=== PATIENT | male | born 1965 | race Two or more races ===

== ENCOUNTER 2024-03-23 14:11 | Emergency (ER) | payer MEDICAID, SELFPAY ==
[2024-03-23 14:14] VITALS: BP 161/97; PULSE 104; RESP 18; TEMP 37.3; O2SAT 97
--- NOTE | 2024-03-23 14:36 | PD.EDMEDCL ---
ED Medical Clearance RME/HPI General Chief complaint: Medical Clearance Stated complaint: SKILLED NURSING CHECK Time Seen by Provider: 03/23/24 14:17 Arrival date/time: 03/23/24 14:11 RME / MARCIN RME / HPI Narrative: DR. GRIFFITHS MAIN ED EVALUATION: 59 year old male with past medical history significant for schizophrenia and bipolar disorder presents to the Emergency Department brought in by police as a medical clearance for elevated blood pressure. Patient is asymptomatic. Related Information Home Medications ?Medication ?Instructions ?Recorded ?Confirmed Unobtainable 02/17/19 02/17/19 Allergies Allergy/AdvReac Type Severity Reaction Status Date / Time haloperidol AdvReac Severe Swelling Verified 02/17/19 11:35 Review of Systems Review of Systems Systems Reviewed: All systems reviewed, normal except as documented Narrative Review of Systems: GEN: No fever, no chills, no weight loss EYES: No discharge, no visual changes, no pain HEENT: No ear pain, no congestion, no sore throat PULM: No shortness of breath, no cough, no congestion CV: No chest pain, no dyspnea on exertion, no palpitations GI: No nausea, no vomiting, no diarrhea, no pain, no constipation : No frequency, no urgency and no dysuria MUSC/SKEL: No joint pain, no back pain SKIN: No rash PSYCH: No hallucinations, no depression HEME/LYMPH: No easy bleeding or bruising tendencies NEURO: No weakness, no headache Past Medical History Past Medical History PSYCHO/SOCIAL: Positive Schizophrenia, Bipolar Disorder and Behavior Problems Social History SMOKING STATUS: Never smoker SUBSTANCE USE: methamphetamine and other (benzos) ALCOHOL: Never ED Exam Narrative Physical exam: GENERAL APPEARANCE: alert and oriented x 4, well-developed, well-nourished, no acute distress VITALS: All vitals were reviewed and the pulse ox is 97% on room air, which is normal according to my interpretation. HEENT: Normocephalic, atraumatic; pupils equal, round, reactive to light; EOMI; mucous membranes pink, moist; oropharynx clear NECK: Supple LUNGS: CTABL; no wheezes, no rales, no rhonchi HEART: Regular rate, regular rhythm; normal S1, S2; no murmurs ABDOMEN: non distended; normal BS; soft, no tenderness, no guarding, no rebound; no masses, no organomegaly, no hernia BACK: no CVA tenderness EXTREMITIES: atraumatic; no edema NEUROLOGIC: awake; alert and oriented x4; cranial nerves II-XII grossly intact; no focal sensory or motor deficits PSYCHIATRIC: appropriate mood and affect SKIN: warm, dry, normal color; no rashes Course Quality Measures none Vital Signs Vital signs: Vital Signs Temperature 99.2 F 03/23/24 14:14 Pulse Rate 104 H 03/23/24 14:14 Respiratory Rate 18 03/23/24 14:14 Blood Pressure 161/97 H 03/23/24 14:14 Pulse Oximetry (%) 97 03/23/24 14:14 Oxygen Delivery Method Room Air 03/23/24 14:14 Medical Clearance MDM Narrative MDM Narrative:: ISarita, am scribing for and in the presence of Dr. Griffiths. Patient data External records reviewed:: [facility] previous records (Reviewed last ED visit dated 11/07/23, discharged with the following: Suicidal ideation) Clinical information provided by:: patient and law enforcement Social determinants that could affect healthcare access:: substance use (methamphetamine and benzos) Patient has the following chronic illnesses:: schizophrenia and bipolar disorder How is presenting disease/condition affected by chronic disease/condition?: uneffected by Evaluation data The following diagnostics were reviewed and interpreted by me:: other (specify) (none) Lab and/or radiology exams considered but not ordered:: none Interpretation Summary: n/a Medications / Prescriptions Medications or Prescriptions considered but not ordered:: none Medication administrations:: none Consultations Consultation(s) initiated? (list below): No Diagnosis Medical Clearance Differential Diagnosis: other (medical clearance, hypertension emergency, hypertension urgency, anxiety) Most likely diagnosis given after review of the tests above:: Elevated blood pressure reading Admission Indicated Admission indicated?: not indicated Admission Request Was there a request for admission?: No Disposition Plan Disposition Plan: Discharge Discharge Attestation Discharge Attestation: The patient and all family members were given an opportunity to ask questions and understood the discharge instructions. Discharge instructions specifically effects, indications for sooner follow up or return to the emergency department, and the expected course of current diagnosis. Patient condition: Stable Discharge Plan Plan Patient Disposition: [facility]/Court/Law Disposition Comment: Okay to book Prescriptions/Referrals Prescriptions/Med Rec: No Action Unobtainable Referrals: No Primary/Family,Physician [Primary Care Provider] - In 1 week Problem List Clinical Impression: Elevated blood pressure reading, Medical clearance for incarceration Patient/Caregiver Discharge Instructions Print Language: Algerian
[2024-03-23 14:44] VITALS: BMI 31.2
== END 2024-03-23 15:15 ==
PROVIDERS: Emergency Provider Emergency Medicine
DX: Z02.89 Encounter for other administrative examinations (principal); R03.0 Elevated blood-pressure reading, without diagnosis of hypertension
CPT/HCPCS: 99281

== ENCOUNTER 2024-03-23 15:43 | Emergency (ER) | payer MEDICAID, SELFPAY ==
[2024-03-23 15:57] VITALS: BP 172/112; PULSE 114; RESP 20; TEMP 37.7; O2SAT 97
--- NOTE | 2024-03-23 16:06 | PD.EDMEDCL ---
ED Medical Clearance RME/HPI General Stated complaint: MEDICAL CLEARANCE Time Seen by Provider: 03/23/24 16:03 Arrival date/time: 03/23/24 15:43 RME / HPI RME / HPI Narrative: DR. TORRES MAIN ED EVALUATION: 59 year old male with past medical history significant for schizophrenia and bipolar disorder presents to the Emergency Department brought in by police as a medical clearance for elevated blood pressure again. Patient was just seen for elevated blood pressure about 2 hours ago and discharged after his blood pressure was normal here and sent back to residential; however, at residential they re-took it and it was elevated again. Patient is otherwise asymptomatic. Related Information Home Medications ?Medication ?Instructions ?Recorded ?Confirmed Unobtainable 02/17/19 02/17/19 Allergies Allergy/AdvReac Type Severity Reaction Status Date / Time haloperidol AdvReac Severe Swelling Verified 02/17/19 11:35 Review of Systems Review of Systems Systems Reviewed: All systems reviewed, normal except as documented Narrative Review of Systems: GEN: No fever, no chills, no weight loss EYES: No discharge, no visual changes, no pain HEENT: No ear pain, no congestion, no sore throat PULM: No shortness of breath, no cough, no congestion CV: No chest pain, no dyspnea on exertion, no palpitations GI: No nausea, no vomiting, no diarrhea, no pain, no constipation : No frequency, no urgency and no dysuria MUSC/SKEL: No joint pain, no back pain SKIN: No rash PSYCH: No hallucinations, no depression HEME/LYMPH: No easy bleeding or bruising tendencies NEURO: No weakness, no headache Past Medical History Past Medical History PSYCHO/SOCIAL: Positive Schizophrenia, Bipolar Disorder and Behavior Problems Social History SMOKING STATUS: Never smoker SUBSTANCE USE: methamphetamine and other (benzos) ALCOHOL: Never ED Exam Narrative Physical exam: GENERAL APPEARANCE: alert and oriented x 4, well-developed, well-nourished, no acute distress VITALS: All vitals were reviewed and the pulse ox is 97% on room air, which is normal according to my interpretation. HEENT: Normocephalic, atraumatic; pupils equal, round, reactive to light; EOMI; mucous membranes pink, moist; oropharynx clear NECK: Supple LUNGS: CTABL; no wheezes, no rales, no rhonchi HEART: Regular rate, regular rhythm; normal S1, S2; no murmurs ABDOMEN: non distended; normal BS; soft, no tenderness, no guarding, no rebound; no masses, no organomegaly, no hernia BACK: no CVA tenderness EXTREMITIES: atraumatic; no edema NEUROLOGIC: awake; alert and oriented x4; cranial nerves II-XII grossly intact; no focal sensory or motor deficits PSYCHIATRIC: appropriate mood and affect SKIN: warm, dry, normal color; no rashes Course Quality Measures none Orders Category Date Time Status LORazepam [Ativan] Med 03/23/24 16:06 Discontinued 2 mg PO X1 ONE cloNIDine HCL [Catapres] Med 03/23/24 16:06 Discontinued 0.2 mg PO X1 ONE Reevaluation(s) Reevaluation #1: I ordered ativan and clonidine P.O. and when he got up the nurse found these medications hidden under him, he is not taking the medications and refusing. Time: 17:50 Vital Signs Vital signs: Vital Signs Temperature 99.9 F 03/23/24 15:57 Pulse Rate 114 H 03/23/24 15:57 Respiratory Rate 20 03/23/24 15:57 Blood Pressure 172/112 H 03/23/24 15:57 Pulse Oximetry (%) 97 03/23/24 15:57 Oxygen Delivery Method Room Air 03/23/24 15:57 Medical Clearance MDM Narrative MDM Narrative:: Sarita Lyle am scribing for and in the presence of Dr. Torres. Patient data External records reviewed:: [facility] previous records (Reviewed last ED visit dated from today 03/23/24, discharged with the following: Elevated blood pressure reading) Clinical information provided by:: patient and law enforcement Social determinants that could affect healthcare access:: substance use (methamphetamine and benzos) Patient has the following chronic illnesses:: schizophrenia and bipolar disorder How is presenting disease/condition affected by chronic disease/condition?: uneffected by Evaluation data The following diagnostics were reviewed and interpreted by me:: other (specify) (none) Lab and/or radiology exams considered but not ordered:: none Interpretation Summary: n/a Medications / Prescriptions Medications or Prescriptions considered but not ordered:: none Medication administrations:: Medication Administration History Discontinued Medications Clonidine (Clonidine Hcl 0.1 Mg Tablet) 0.2 mg PO X1 ONE Stop: 03/23/24 16:07 Last Admin: 03/23/24 16:35 Dose: 0.2 mg Documented By: TAMIKA Lorazepam (Lorazepam 0.5 Mg Tablet) 2 mg PO X1 ONE Stop: 03/23/24 16:07 Last Admin: 03/23/24 16:35 Dose: 2 mg Documented By: TAMIKA see above Consultations Consultation(s) initiated? (list below): No Diagnosis Medical Clearance Differential Diagnosis: other (medical clearance, hypertension emergency, hypertension urgency, anxiety) Most likely diagnosis given after review of the tests above:: Elevated blood pressure reading Admission Indicated Admission indicated?: not indicated Admission Request Was there a request for admission?: No Disposition Plan Disposition Plan: Discharge Discharge Attestation Discharge Attestation: The patient and all family members were given an opportunity to ask questions and understood the discharge instructions. Discharge instructions specifically effects, indications for sooner follow up or return to the emergency department, and the expected course of current diagnosis. Patient condition: Stable Discharge Plan Plan Patient Disposition: HOME (Self Care) Prescriptions/Referrals Prescriptions/Med Rec: No Action Unobtainable Referrals: No Primary/Family,Physician [Primary Care Provider] - In 1 week Problem List Clinical Impression: Elevated blood pressure reading Patient/Caregiver Discharge Instructions Education Materials: ED Hypertension, To Be Confirmed Print Language: Lao Stand Alone Forms: Vidhi Award Info., Patient Portal Info Letter
[2024-03-23 16:35] VITALS: BP 172/112; PULSE 114
[2024-03-23] MEDS: LORazepam 0.5 MG TABLET 2 MG PO (16:35)
[2024-03-23] MEDS: cloNIDine HCL 0.1 MG TABLET 0.2 MG PO (16:35)
[2024-03-23 17:23] VITALS: BP 172/126
[2024-03-23 17:50] VITALS: BP 164/92
[2024-03-23 18:15] VITALS: BP 137/86; PULSE 97; RESP 18; TEMP 36.6; O2SAT 96
== END 2024-03-23 18:46 | disposition home or self-care (01) ==
PROVIDERS: Emergency Provider Emergency Medicine
DX: Z02.89 Encounter for other administrative examinations (principal); F20.9 Schizophrenia, unspecified; F31.9 Bipolar disorder, unspecified; R03.0 Elevated blood-pressure reading, without diagnosis of hypertension
CPT/HCPCS: 99282; A9270

== ENCOUNTER 2024-03-23 20:28 | Emergency (ER) | payer MEDICAID, SELFPAY ==
[2024-03-23 20:31] VITALS: BP 197/113; PULSE 148; RESP 20; TEMP 36.9; O2SAT 99; BMI 30.9
--- NOTE | 2024-03-23 21:26 | EDNOTE_ITS ---
ED Psych RME/HPI General Chief Complaint: Psychiatric Symptoms Stated Complaint: SKILLED NURSING CHECK Time Seen by Provider: 03/23/24 20:30 Source: patient and police Arrival date/time: 03/23/24 20:28 59-year-old male is brought into the emergency department by report of the police officers for medical clearance for incarceration. Patient was found at the nearby [employer] shop arguing and attempting to fight employees from the shop. Patient has a history of hypertension, schizophrenia mental health disorder. Upon arrival patient is screaming incoherent gestures, belligerent. Patient is aggressive and was tased 4 times by officers, because he was resisting arrest. There is no visible prongs on the patient's body. Unable to obtain review of system patient not cooperating. + Acute psychosis. Mode of arrival: EMS Related Data Home Medications ?Medication ?Instructions ?Recorded ?Confirmed Unobtainable 02/17/19 02/17/19 Allergies Allergy/AdvReac Type Severity Reaction Status Date / Time haloperidol AdvReac Severe Swelling Verified 02/17/19 11:35 Review of Systems Review of Systems ROS Unobtainable: unobtainable due to mental status ED Exam Narrative Physical exam: General: 59-year-old male acute psychosis screaming, not answering questions. HENT: normocephalic, atraumatic, EOMI, PERRLA, moist mucous membranes Chest: chest wall is nontender, + positive abrasions noted to chest prong site. Cardiac: regular rate and rhythm, normal S1 and S2, no murmurs, rubs, or gallops, capillary refill ?2 seconds Pulmonary: clear to auscultation bilaterally, no wheezing, crackles, or rhonchi Abdominal: active bowel sounds, soft, nontender, nondistended Neuro: A&OX3, CN II-XII intact, sensation grossly intact bilaterally in UE and LE. Skin: no rashes, no ecchymosis Ext: no lower extremity edema Course Quality Measures none Orders Category Date Time Status 1799 Psychiatric Hold NOW Care 03/23/24 20:45 Ordered EKG (ED ONLY) *Do not use* NOW Care 03/23/24 20:37 Completed Insert IV NOW Care 03/23/24 20:37 Active EKG (ED Only) Stat Exams 03/23/24 20:37 Ordered Acetaminophen Stat Lab 03/23/24 21:10 Completed BNP [B-Type Natriuretic Peptide] Stat Lab 03/23/24 21:10 Completed CBC Stat Lab 03/23/24 21:10 Completed CK [Creatine Kinase] Stat Lab 03/23/24 21:10 Completed CMP [Comprehensive Metabolic Panel] Stat Lab 03/23/24 21:10 Completed Drug Screen,Urine Stat Lab 03/23/24 22:06 Completed Free T3 Stat Lab 03/23/24 21:10 Completed Free T4 (Free Thyroxine) Stat Lab 03/23/24 21:10 Completed EUGENIO [Alcohol, Blood Medical] Stat Lab 03/24/24 00:36 Completed Salicylate Stat Lab 03/23/24 21:10 Completed TSH [Thyroid Stimulating Hormone] Stat Lab 03/23/24 21:10 Completed Troponin I Stat Lab 03/23/24 21:10 Completed DiphenhydrAMINE INJ [Benadryl Inj] Med 03/23/24 21:51 Discontinued 25 mg IVP X1 ONE LORazepam [Ativan Inj] Med 03/23/24 21:51 Discontinued 2 mg IVP X1 ONE OLANZapine INJ [Zyprexa Inj] 10 mg Med 03/23/24 20:44 Discontinued Sterile Water 2.1 ml IM QDAY OLANZapine INJ [Zyprexa Inj] 10 mg Med 03/23/24 21:25 Discontinued Sterile Water 2.1 ml IM QDAY Sodium Chloride 0.9% 1000 ml [Ns] 1,000 ml Med 03/23/24 20:37 Discontinued IV 999 mls/hr Vital Signs Vital signs: Vital Signs Temperature 98.4 F 03/23/24 20:31 Pulse Rate 148 H 03/23/24 20:31 Respiratory Rate 20 03/23/24 20:31 Blood Pressure 197/113 H 03/23/24 20:31 Pulse Oximetry (%) 99 03/23/24 20:31 Oxygen Delivery Method Room Air 03/23/24 20:31 Psych MDM Narrative MDM Narrative:: 59-year-old male brought into the emergency department for senior living clearance after patient was tased 4 times by police officers. Patient has a history of schizophrenia was found out in a donut shop, acting belligerent psychosis and aggressive with bystanders and officers. He was brought in for medical senior living clearance however the patient is found to be in acute psychosis hypertensive. This is the patient's third visit to the emergency department will initiate a full workup, and will be placed on a 1799 for further evaluation. General labs, thyroid studies, CK-MB, urine drug screen ordered. IV fluids to be given to patient. Patient fighting with officers and staff. Medication was ordered for acute psychosis, Patient blood pressure is noted to be elevated IV medication to be given. Examined the patient's body he does have a couple of abrasions noted to his torso. Officers reported that that is where the taser prongs were located. There is no other visible trauma or inserted taser prongs. Case will be signed out to Dr. Azevedo for further evaluation. Patient will most likely need a mental health evaluation after medical clearance. Patient data External records reviewed:: [facility] previous records and PCP records Clinical information provided by:: law enforcement Social determinants that could affect healthcare access:: none Patient has the following chronic illnesses:: Schizophrenia, hypertension, How is presenting disease/condition affected by chronic disease/condition?: un effected by Evaluation data The following diagnostics were reviewed and interpreted by me:: lab results, radiology exam(s) and EKG tracing(s) Lab and/or radiology exams considered but not ordered:: No Interpretation Summary: see above Medications / Prescriptions Medications or Prescriptions considered but not ordered:: yes Medication administrations:: Medication Administration History Discontinued Medications Olanzapine 10 mg/ Sterile (Water 2.1 ml) 0 mg IM QDAY JACOB Stop: 04/22/24 20:43 Last Admin: 03/23/24 22:45 Dose: Not Given Documented By: LISANDRO Non-Admin Reason: Discontinued Olanzapine 10 mg/ Sterile (Water 2.1 ml) 0 mg IM QDAY ONE Stop: 03/23/24 21:26 Last Admin: 03/23/24 22:38 Dose: 10 dose Documented By: LISANDRO Diphenhydramine HCl (Diphenhydramine Inj 50 Mg/Ml Vial) 25 mg IVP X1 ONE Stop: 03/23/24 21:52 Last Admin: 03/23/24 22:33 Dose: 25 mg Documented By: LISANDRO Sodium Chloride (Ns) 1,000 mls @ 999 mls/hr IV .Q1H1M ONE Stop: 03/23/24 21:37 Last Infusion: 03/23/24 22:43 Dose: Infused Documented By: Admin: 03/23/24 21:34 Dose: 999 mls/hr Documented By: NIXON Lorazepam (Lorazepam 2 Mg/Ml Vial) 2 mg IVP X1 ONE Stop: 03/23/24 21:52 Last Admin: 03/23/24 22:32 Dose: 2 mg Documented By: KD All medications administered and effective Consultations Consultation(s) initiated? (list below): No Diagnosis Psych Differential Diagnosis: acute psychosis, chronic schizophrenia, suicidal ideation, drug-induced psychotic disorder and acute anxiety Most likely diagnosis given after review of the tests above:: Acute psychosis, schizophrenia Admission Indicated Admission indicated?: indicated Admission Request Was there a request for admission?: No Disposition Plan Disposition Plan: Transfer Discharge Plan Plan Patient Disposition: [facility] Prescriptions/Referrals Prescriptions/Med Rec: No Action Unobtainable Referrals: No Primary/Family,Physician [Primary Care Provider] - In 1 week Problem List Clinical Impression: Acute and transient psychotic disorder, Schizophrenia Patient/Caregiver Discharge Instructions Discharge Activity: activity as tolerated Print Language: Chinese Stand Alone Forms: Vidhi Award Info., Patient Portal Info Letter PA/LEXUS Supervising Physician AMAIRANI/LEXUS Supervising Physician: dr azevedo
[2024-03-23] MEDS: SODIUM CHLORIDE 0.9% 1000 ML 1,000 ML 999 ML IV (21:34)
[2024-03-23 21:41] VITALS: BP 202/118; PULSE 111; RESP 17; O2SAT 96
[2024-03-23 21:41] LABS: Basophils # (Auto) 0.1 Thou/mm3 (0.0-0.2); Basophils % (Auto) 1 % (0-2.5); Eosinophils % (Auto) 0 % (0-10); Hematocrit 48.3 % (41.0-53.0); Hemoglobin 16.8 g/dL (13.5-16.0); Immature Granulocytes % (Auto) 0 % (0-0); Immature Granulocytes Auto 0.03 Thou/mm3 (0.00-0.00); Lymphocytes # (Auto) 1.8 Thou/mm3 (1.0-4.8); Lymphocytes % (Auto) 17 % (10-50); Mean Corpuscular HGB Conc 34.8 g/dl (31.0-37.0); Mean Corpuscular Hemoglobin 28.5 pg (25.0-35.0); Mean Corpuscular Volume 82 fL (80-100); Monocytes # (Auto) 0.5 Thou/mm3 (0.0-0.8); Monocytes % (Auto) 5 % (0-12); Neutrophils # (Auto) 8.3 Thou/mm3 (1.8-7.7); Neutrophils % (Auto) 77 % (37-80); Nucleated Red Blood Cell % 0 /100 WBC (0); Platelet Count 251 Thou/mm3 (140-440); White Blood Count 10.8 Thou/mm3 (3.8-10.6)
[2024-03-23 22:07] LABS: Acetaminophen < 2.0 mcg/mL (10.0-20.0); Alanine Aminotransferase 21 U/L (10-49); Albumin, Serum 4.3 gm/dL (3.5-5.0); Albumin/Globulin Ratio 1.7 (1.2-2.2); Alkaline Phosphatase 98 U/L (46-116); Anion Gap 10 (7-16); Aspartate Amino Transferase 17 U/L (0-34); BUN/Creatinine Ratio 20 Ratio (12-20); Bilirubin,Total 0.7 mg/dL (0.3-1.2); Blood Urea Nitrogen 20 mg/dL (9-23); Calcium 8.9 mg/dL (8.3-10.6); Calcium (Corrected) 8.9 mg/dL (8.5-10.1); Carbon Dioxide 23.6 mMol/L (20.0-31.0); Chloride 104 mMol/L (98-107); Creatine Kinase 139 U/L (34-171); Estimated Creatinine Clearance 77.6 mL/min (>60); Globulin 2.5 gm/dL (2.3-3.5); Glucose 258 mg/dL (74-106); Osmolality,Calculated 287 (275-295); Potassium 3.5 mMol/L (3.4-5.1); Salicylate < 3.0 mg/dL; Sodium 138 mMol/L (136-145); Thyroid Stimulating Hormone 1.58 uIU/mL (0.55-4.78); Total Protein 6.8 gm/dL (5.7-8.2); Troponin I < 0.020 ng/mL (0.0-0.045); eGFR > 60 See Note
[2024-03-23 22:10] LABS: B-Type Natriuretic Peptide < 20 pg/mL (0-100)
[2024-03-23] MEDS: LORazepam 2 MG/ML VIAL IVP (22:32)
[2024-03-23] MEDS: DiphenhydrAMINE INJ 50 MG/ML VIAL 25 MG IVP (22:33)
[2024-03-23] MEDS: OLANZapine INJ 10 MG, Sterile Water 2.1 ML IM (22:38)
--- NOTE | 2024-03-23 22:40 | PD.EDADDENDU ---
Emergency Room Addendum Addendum Narrative: 2300: Care assumed from Meliza Stack NP. Past medical, surgical, social and family history reviewed. Vitals and home medications reviewed. Results and treatment plan discussed. I will assume the care of the patient at this time and will follow the patient, pending medical clearance for crisis evaluation. Please refer to the emergency department record for history and examination from initial visit. EKG done at 2248, sinus tachycardia, rate of 108, normal axis, no ectopy, no acute ischemia, according to my interpretation. 2258: Patient is somnolent, but arousable to voice. Blood pressure is 166/98 with a heart rate of 105. Pending UDS at this time. UDS is negative, 2339: Patient is medically clear for crisis evaluation. The patient was placed in ED observation care at 03/23/24 at 2339 hours. The patient was placed in ED observation care because of pending psychiatric evaluation. The patients past medical history, social history, and family history were reviewed. The plan of care will include serial examinations. 0600: Care signed out to Dr. Marcano (emergency physician). Past medical, surgical, social and family history reviewed. Vitals and home medications reviewed. Results and treatment plan discussed. They will assume the care of the patient at this time and will follow the patient, pending psychiatric evaluation. At this time, observation has ended.
[2024-03-23 22:57] VITALS: PULSE 109; RESP 27; O2SAT 92
[2024-03-23 22:58] VITALS: BP 166/98; PULSE 105; O2SAT 91
[2024-03-23 23:01] VITALS: BP 163/96; PULSE 125; RESP 17; O2SAT 92
[2024-03-23 23:30] VITALS: BP 130/71; PULSE 105; RESP 29; O2SAT 89
[2024-03-23 23:31] LABS: Amphetamine/Methamp Scrn,U Negative (Negative); Barbiturate Screen,Urine Negative (Negative); Benzodiazepines Screen,Urine Negative (Negative); Benzoylecgonine Screen, Ur Negative (Negative); Fentanyl Screen,Urine Negative (Negative); Opiate Screen,Urine Negative (Negative); THC Screen,Urine Negative (Negative)
[2024-03-24] VITALS (14 sets, daily range): BP systolic 86–183; BP diastolic 57–121; PULSE 66–94; RESP 15–19; TEMP 36.4; O2SAT 92–99
[2024-03-24 01:39] LABS: Alcohol, Blood Medical < 3.0 mg/dL (0-10.0)
--- NOTE | 2024-03-24 06:49 | PD.EDADDENDU ---
Emergency Room Addendum Addendum Narrative: 0600: Care assumed from Dr. Azevedo, the previous shift emergency physician. Past medical, surgical, social and family history reviewed. Vitals and home medications reviewed. I will assume the care of the patient at this time, pending psychiatric evaluation. Please refer to the emergency department record for history and examination from initial visit.? Physical exam by me shows patient under no acute distress at this time. The patient was placed in ED observation care at 03/24/2024 at 0600 hours. The patient was placed in ED observation care because of undifferentiated decompensated behavioral health evaluation. The patients past medical history, social history, and family history were reviewed. The plan of care will include serial examinations. While in ED observation the patient will have access to water, food, and personal hygiene. If the patient takes home medication(s), they will be continued in ED observation. 1100: Patient was assessed by [facility] and meeting criteria for 5150 hold, patient placed on a hold. Patient pending LPS facility placement. 1800: Patient was signed out to Dr. Azevedo. Past medical, surgical, social and family history reviewed. Vitals and home medications reviewed. Results and treatment plan discussed. They will assume the care of the patient at this time and will follow the patient, pending LPS facility placement. At this time, observation has ended.
--- NOTE | 2024-03-24 10:11 | PC.NURSE ---
Patient is refusing all vitals and care at this time. Patient states that he doesn't want these work bitches near him and that he doesn't want any animals to be brought to the hospital and if some one were to bring him an animal they would need to bring it by the balls. Attempted to reorient and educate patient. No evidence of learning.
--- NOTE | 2024-03-24 11:01 | PC.SS ---
Addendum entered by Katharine Reilly 03/24/24 13:32: Packet for placement submitted to LPS facilities via fax and About. Original Note: Patient was brought in by [facility] for medical clearance. Patient was placed on a 1799 by ED provider on 03/23/242044. A mental health evaluation was requested. Electrician Journeyman Wireman engaged patient in mental health assessment. Patient greeted this technical writer and stated he was doing better today. Electrician Journeyman Wireman explained role and purpose of today's contact. Patient was initially cooperative. However, immediately after stating he was better became visibly upset. Patient frowned, lowered his voice, and began to say tell the nurses not to act like mules, I'm not poison. Patient also stated, I don't want animals in the hospital and if you bring me any make sure you bring them to me by the balls. Patient also stated he was the master and was not understood. Patient continued to call this technical writer and staff lin song Patient stated no one understands the language he speaks nor the language he hears. Patient demanded to be left alone and not bothered. Electrician Journeyman Wireman informed patient Next of Kin would be contacted. Collateral information provided by patient's next of kin, Walter Bolivar. Patient's brother Walter disclosed patient is diagnosed with Bipolar disorder and is not medication compliant. Patient's brother Walter states patient lives with 8 other roommates in a home. He reports patient is not connected to a mental health provider and refuses to seek treatment. Patient's brother Walter shared patient has not slept for approximately 2 weeks and has been consuming unknown substances during this time. Patient's brother Walter stated the patient has been placed in psychiatric holds in 2019 5150-DTS and 2023 5150-GD. Walter believes patient's mental health deterioriated after patient lost his son in September 2023. Patient's brother Walter denies patient having SI, HI, Ah or Vh. 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 Patient's brother Walter denies patient is physically aggressive towards others. However, he reports patient is verbally aggressive towards others. Patient's brother Walter requested to be updated of patient's discharge plan. Rack Room Worker MM consulted for case consultation. Patient was assessed as meeting criteria for 5150 Hold-GD. Electrician Journeyman Wireman to initiate LPS facility placement. Dr. Marcano, CORNELIA Zamarripa, and RN Desire singh.
--- NOTE | 2024-03-24 14:45 | PC.CC ---
Addendum entered by Myrna Crooks 03/24/24 18:24: 1821 [facility], María reports they have no male adult beds. 1818[facility] James reports they could potentially have an open bed later tonight, and made sure the patient and assured the patient is in the queue. 1815 [facility] Padmaja the patient is in the queue no open beds. Addendum entered by Myrna Crooks 03/24/24 18:15: ASW contacted Natalee Jane reports patient is still in the queue and will have team review packet when possible. Original Note: Ryanne with [facility] called and informed ASW that they are at capacity. Edwardo with [facility] reports they do not have any adult male beds available. Oniel with [facility] reports they do not have any adult male beds as they are capacity. Ryan Albright is going to present the packet to her team.
--- NOTE | 2024-03-24 18:15 | PD.EDADDENDU ---
Emergency Room Addendum <Wan Webster - Last Filed: 03/24/24 20:56> Addendum Narrative: 1800: Care assumed from Dr. Marcano, the previous shift emergency physician. Past medical, surgical, social and family history reviewed. Vitals and home medications reviewed. I will assume the care of the patient at this time, pending LPS facility placement. Please refer to the emergency department record for history and examination from initial visit.? Physical exam by me shows patient under no acute distress at this time. The patient was placed in ED observation care at 03/24/2024 at 1800 hours. The patient was placed in ED observation care because of undifferentiated decompensated behavioral health evaluation. The patients past medical history, social history, and family history were reviewed. The plan of care will include serial examinations. While in ED observation the patient will have access to water, food, and personal hygiene. If the patient takes home medication(s), they will be continued in ED observation. <Alida Antony - Last Filed: 03/25/24 02:16> Addendum Narrative: 1800: Care assumed from Dr. Marcano, the previous shift emergency physician. Past medical, surgical, social and family history reviewed. Vitals and home medications reviewed. I will assume the care of the patient at this time, pending LPS facility placement. Please refer to the emergency department record for history and examination from initial visit.? Physical exam by me shows patient under no acute distress at this time. The patient was placed in ED observation care at 03/24/2024 at 1800 hours. The patient was placed in ED observation care because of undifferentiated decompensated behavioral health evaluation. The patients past medical history, social history, and family history were reviewed. The plan of care will include serial examinations. While in ED observation the patient will have access to water, food, and personal hygiene. If the patient takes home medication(s), they will be continued in ED observation. 0600: Care signed out to Dr. Griffiths (emergency physician). Past medical, surgical, social and family history reviewed. Vitals and home medications reviewed. Results and treatment plan discussed. They will assume the care of the patient at this time and will follow the patient, pending LPS facility placement. At this time, observation has ended. MD Attestation <Wan Cordonang - Last Filed: 03/24/24 20:56> MD Attestation Scribe Attestation: I, Pratima Webster, am scribing for and in the presence of Dr. Azevedo. Provider Notation: Although this document has been carefully reviewed, there may still be some phonetic and other typographical errors. These errors are purely grammatical due to imperfections in the software program and should not be construed in any way to compromise the substance of the patient's medical care during this visit.
--- NOTE | 2024-03-24 19:00 | PC.NURSE ---
PATIENT REFUSED TO ANSWER ANY COLOMBIA SCALE QUESTIONS OR PSYCHIATRIC QUESTIONS. PATIENT JEROME ANY THOUGHTS OF SUICIDE.
--- NOTE | 2024-03-25 01:28 | PC.NURSE ---
tried to update pt vitals pt yelled to get out and became verbally aggressive charge nurse zak is aware
[2024-03-25 05:01] VITALS: BP 132/87; PULSE 62; RESP 18; TEMP 36.8; O2SAT 96
--- NOTE | 2024-03-25 05:06 | PC.NURSE ---
pt woke up and flagged me into room. pt allowed me to take vitals. I asked pt if he had an accident, pt denied. pt was offered to use the bathroom, food, water and juice, pt denied all needs at this time.
--- NOTE | 2024-03-25 06:08 | PD.EDADDENDU ---
Emergency Room Addendum Addendum Narrative: 0600: Care assumed from Dr. Azevedo, the previous shift emergency physician. Past medical, surgical, social and family history reviewed. Vitals and home medications reviewed. I will assume the care of the patient at this time, pending LPS facility placement. The patient was placed in ED observation care at 03/25/2024 at 0600 hours. The patient was placed in ED observation care because of undifferentiated decompensated behavioral health evaluation, no behavioral health bed available. The patients past medical history, social history, and family history were reviewed. The plan of care will include serial examinations. Please refer to the emergency department record for history and examination.? While in ED observation the patient will have access to water, food, and personal hygiene. If the patient takes home medication(s), they will be continued in ED observation. Physical exam by me shows patient under no acute distress at this time. 1730: Patient remains clinically stable throughout the emergency department visit. Re-assessment at the time of disposition demonstrates that the patient is in no acute distress. Safety plan in place and patient will be discharged. At this time, observation has ended.
--- NOTE | 2024-03-25 06:58 | PC.NURSE ---
NARENDRA FROM [facility] CALLED AND THEY ARE CLOSING OUT THIS CASE DUE TO THE PT'S ACQUITY.
[2024-03-25 07:00] VITALS: BP 152/88; PULSE 74; RESP 18; TEMP 36.8; O2SAT 98
[2024-03-25 08:57] VITALS: BP 153/87; PULSE 99; RESP 18; TEMP 36.7; O2SAT 98
--- NOTE | 2024-03-25 09:59 | PC.SS ---
Addendum entered by Katharine Reilly 03/25/24 14:08: [facility]: No answer, left message with intake department requesting a return call. [facility]: No beds available. Will contact ED SW if beds become available. [facility]: Declined due to insurance. Only accept [facility] and [facility]. Psychiatric: [facility] Ariela declined referral. [place]: In queue. Addendum entered by Katharine Reilly 03/25/24 12:34: [facility]: No beds at this time, at capacity. [facility]: No beds available, possible openings in the evening after discharges. [facility]: No beds available, patient remains in queue. If bed becomes available they will contact [facility]. [facility]: No beds available at this time. [facility]: At capacity, no beds available until 5-7days from today. Addendum entered by Katharine Reilly 03/25/24 11:21: 1120 [facility] stated patient was denied by their doctor due to behaviors. Addendum entered by Katharine Reilly 03/25/24 11:17: [facility]6 [facility] at [facility] and patient will remain in their queue. Addendum entered by Katharine Reilly 03/25/24 11:10: 0926 Updated packet faxed and resubmitted via Bi to the following facilities: [facility]+ [facility] [employer], [facility] on [facility], no beds available. 0945 [facility]: No beds available, callback after 1400 after discharges occur. 0951 [facility]: No beds available. 0954 [facility]: No open beds, will review packet and contact [facility] if bed becomes available. 0959 Shantelle contacted ticket writer and requested to speak to patient's nurse to obtain further information. Bed may be available today for patient.
[2024-03-25 12:50] VITALS: BP 153/87; BP 153/97; PULSE 97; PULSE 98; RESP 18; TEMP 36.8; O2SAT 98
--- NOTE | 2024-03-25 14:37 | PC.CC ---
Addendum entered by Myrna Crooks 03/25/24 16:27: 1622 ASW, spoke to Mariaelena at [facility] who reports patient is still in queue and waiting for team to review. Addendum entered by Myrna Crooks 03/25/24 15:02: 1459 Alyson TjHannah reports she has not had time to look at the fax; however, when she does and if they are able to accept they will contact us back. Addendum entered by Myrna Crooks 03/25/24 14:53: [facility]50 [facility] be sent to her again at [phone]. 0152 [facility] patient remains in queue. Nurses are reviewing packet if any beds are available they will make contact with us. 1445 Mariaelena James requested ASW call back after 1600 for follow-up. Original Note: 1438 [facility]-No beds still continues to be in queue.
--- NOTE | 2024-03-25 16:03 | PC.CC ---
Myrna SAMUELS made face to face contact with the patient and bedside RN Andrew. ASW introduced self, role, and reason for visit. Patient appeared alert and oriented to self, location, and situation. Patient was able to provide his address and shared he lives in a home with roommates. Patient is employed and works in agriculture. Patient disclosed he does take his psychotropic medication and goes to [facility] and his therapist is Malik. ASW informed patient that if is not placed at an [facility] faicility there will be a reassessment which patient was in agreement.
--- NOTE | 2024-03-25 17:28 | PC.CC ---
Patient is a 59 year-old male who presented to the hospital for a medical clearance and was subsequently placed on a 5150-GDA by ASWKatharine. Myrna SAMUELS made [id number] contact with patient. ASW introduced self, role, and reason for visit. Patient appeared alert and oriented to self, location, and situation.?Patient was pleasant and engaged in initial assessment. Patient made appropriate eye contact during assessment. Patient confirmed information on demographics and report to living at home with roommates. 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 Patient reports he is connected to [facility] and his therapist is Malik. Patient has a mental health diagnosis of Bipolar Disorder. Patient stated he is compliant with his medication Depakote 500mg in the morning and in the evening. Patient denied current visual and auditory hallucinations, homicidal and suicidal ideations. Patient denied past suicide attempts and state, ?Life is too juan.? Patient has been placed on 5150-holds in the past. Patient is willing to engage in safety plan and provided consent to make contact with Shawn Thomas patient?s friend/roommate. Patient denied there is any firearms in his home. Myrna SAMUELS made telephone contact with Shawn who stated he is willing to engage in safety plan with ASW and patient. Shawn is willing to provide extra supervision for the patient for the next 72 hours and ensure the patient attends his appointment at [facility] tomorrow 03/26/2024 at 02:30pm. Shawn reports he will present himself to the hospital to bead picker the patient and be provided with the information as to where the patient?s appointment is tomorrow. Upon clinical consultation with Kelsey WITT patient?s 5150-hold for [facility] will be rescinded as patient no longer meets criteria. ASW, provided updated discharge plan to Dr. Griffiths who is in agreement with safety plan. ASW provided update to food court team memberDallin and bedside RN Andrew.
--- NOTE | 2024-03-25 17:35 | PC.CC ---
8909 Patient's friend Shawn Thomas presented to the hospital to grape picker the patient. ASW went over the safety plan discussed over the phone with the patient and the friend. Patient was provided with information for his mental health appointment tomorrow with Malik at [facility].
[2024-03-25 17:38] VITALS: BP 146/88; PULSE 88; RESP 16; TEMP 36.7; O2SAT 99
== END 2024-03-25 17:38 | disposition home or self-care (01) ==
PROVIDERS: Nurse Practitioner Primary Care; Emergency Provider Emergency Medicine
DX: Z02.89 Encounter for other administrative examinations (principal); I10 Essential (primary) hypertension; F20.9 Schizophrenia, unspecified
CPT/HCPCS: 36415; 80053; 80307; 80320; 80329; 82550; 83880; 84439; 84443; 84481; 84484; 85025; 90839; 93005; 96127; 96374; 96375; 99284; 99285; A4216; J1200; J2060; J2358; J7030; G0480; J2359

== ENCOUNTER 2024-11-25 00:11 | Emergency (ER) | payer MEDICAID, SELFPAY ==
[2024-11-25 00:19] VITALS: PULSE 108; RESP 98
[2024-11-25 00:21] VITALS: BMI 27.3
[2024-11-25] MEDS: DIAZEPAM INJ 5 MG/ML VIAL 2 ML 10 MG IM (00:34)
[2024-11-25 00:40] VITALS: BP 156/118; PULSE 121; RESP 20; TEMP 36.8; O2SAT 95
--- NOTE | 2024-11-25 00:45 | XR_ITS ---
Examination: CT brain head without contrast. 2-D sagittal coronal reconstructions Date and time of exam: November 25, 2024, 0211 hours, comparison January 22, 2008 INDICATIONS: Patient fell struck the back of the head on cement today [facility] medical clearance CTDI: vol (mGy): 52.9 DLP: (mGycm): 1078 Technique: Multiple CT axial sections of the brain have been obtained, 5 mm slice thickness. Contrast has not been administered. 2-D sagittal, coronal reconstructions have been obtained Low dose protocols were performed. One or more of the following dose reduction techniques were used; automated exposure control, adjustment of the mA and/or KV according to patient size, use of iterative reconstruction technique. Findings: No significant ventricular enlargement. Intra-axial or extra-axial hemorrhage density is not seen. No mass effect or midline shift Basal cisterns are not remarkable. Fourth ventricle is midline. Cranial vault intact. Right parietal scalp swelling Impression: Negative for acute hemorrhage, mass effect or midline shift
--- NOTE | 2024-11-25 00:50 | PC.NURSE ---
Pt brought to ER by DILIA. Per Officer Savana Gallegos, pt was uncooperative and he was tazed which caused him to fall backward and hit his back of his head, no LOC. On arrival, pt very agitated, acting bizarre, yelling at police officers and nursing staff. Pt alert/oriented to self. Pt very uncooperative. Pt was then restrained. Discussed plan of care; however, pt refused to learn.
[2024-11-25] MEDS: SODIUM CHLORIDE 0.9% 1000 ML 1,000 ML 2000 ML IV (01:13)
[2024-11-25 01:21] LABS: Basophils # (Auto) 0.0 Thou/mm3 (0.0-0.2); Basophils % (Auto) 0 % (0-2.5); Eosinophils # (Auto) 0.1 Thou/mm3 (0.0-0.5); Eosinophils % (Auto) 1 % (0-10); Hematocrit 43.4 % (41.0-53.0); Hemoglobin 14.9 g/dL (13.5-16.0); Immature Granulocytes Auto 0.04 Thou/mm3 (0.00-0.00); Lymphocytes # (Auto) 1.2 Thou/mm3 (1.0-4.8); Lymphocytes % (Auto) 11 % (10-50); Mean Corpuscular HGB Conc 34.3 g/dl (31.0-37.0); Mean Corpuscular Hemoglobin 28.6 pg (25.0-35.0); Mean Corpuscular Volume 83 fL (80-100); Monocytes # (Auto) 0.8 Thou/mm3 (0.0-0.8); Monocytes % (Auto) 7 % (0-12); Neutrophils # (Auto) 9.3 Thou/mm3 (1.8-7.7); Neutrophils % (Auto) 81 % (37-80); Nucleated Red Blood Cell # 0.00 Thou/mm3 (0.00-0.00); Nucleated Red Blood Cell % 0 /100 WBC (0); Platelet Count 248 Thou/mm3 (140-440); RDW Standard Deviation 36.7 fL (35.1-43.9); Red Blood Count 5.21 Miln/mm3 (4.50-5.90); White Blood Count 11.4 Thou/mm3 (3.8-10.6)
--- NOTE | 2024-11-25 01:22 | EDNOTE_ITS ---
ED Medical Clearance RME/HPI General Chief complaint: Medical Clearance Stated complaint: MEDICAL CLEARANCE Time Seen by Provider: 11/25/24 00:15 Arrival date/time: 11/25/24 00:11 RME / HPI RME / HPI Narrative: DR. AMAYA MAIN ED EVALUATION: Patient presenting with severe agitation after patient reportedly acting bizarre, making gun gestures , and was resistant to arrest subsequential tazed causing him to fall backwards striking occiput without associated LOC or alteration LOC witnessed by avp. Patient was escorted to ED for evaluation. Upon arrival, patient was acutely agitated with pressure tangential speech, confused and unable to provide succinct history. Suspect possible polysubtance abuse. PMH: Based upon review of chart: Psychosis, HTN, Bipolar Disorder, Schizop hrenia, and Suicidal ideation PSH: Unknown Allergies: Haloperidol Social: Methamphetamine, Benzodiazepines Related Information Home Medications ?Medication ?Instructions ?Recorded ?Confirmed Unobtainable 02/17/19 02/17/19 Allergies Allergy/AdvReac Type Severity Reaction Status Date / Time haloperidol Allergy swelling Verified 11/25/24 00:28 Review of Systems Review of Systems Systems Reviewed: All systems reviewed, normal except as documented Past Medical History Past Medical History PSYCHO/SOCIAL: Positive Schizophrenia, Recreational Drug Use, Bipolar Disorder and Behavior Problems Social History SUBSTANCE USE: methamphetamine and other (benzos) ED Exam Narrative Physical exam: PHYSICAL EXAM CONDUCTED AFTER RAPID TRANQUILIZATION GEN. APPEARANCE: The patient is alert awake oriented X-3 under no distress, lying down comfortably s/p sedation, does not look ill/toxic. Patient has good eye contact. Patient unable to follow simple commands. Minimmaly arousable. VITALS: All vitals were reviewed and the pulse ox is 95%, which is normal according to my interpretation HEENT: Normocephalic, atraumatic and nontender. Pupils are equal and reactive. Oral mucosa is moist. NECK: Supple, nontender, no meningismus, no JVD. There is no thyromegaly and no lymphadenopathy. CHEST: Nontender on palpation no deformity and no crepitus. CARDIOVASCULAR: Heart regular rhythm, no murmur or gallop rub or extra beats. LUNGS: Clear to auscultation bilaterally with symmetrical chest rise. No laboring tachypnea or wheezing. No intercostal subcostal retraction. No rales and no rhonchi. ABDOMEN: Soft, flat, nontender to palpation, no guarding or rebound tenderness. There are no abnormal masses palpated. No pulsatile masses or bruits. Active and normal bowel sounds. EXTREMITIES:.Normal inspection and palpation. No edema. No cyanosis. Patient is able to move all 4 extremities well SKIN: Warm and dry, no rashes noted. MUSCULOSKELETAL: No lumbar or midline bony tenderness. There is no CVA tenderness. No paraspinal muscle spasm or tenderness. NEURO: Cranial nerves II through XII grossly intact. There are no obvious focal neurologic deficits noted. Difficult to assess. PSYCHIATRIC: Unable to assess at this time. LYMPHATICS: No major lymphadenopathy noted. Course Quality Measures none Orders Category Date Time Status 4 HR Behavioral Restraints Q15M Care 11/25/24 00:50 Completed Bedside Blood Glucose NOW Care 11/25/24 00:18 Active Hybrid Powertrain Development Engineer NOW Care 11/25/24 00:19 Active Continuous Pulse Oximetry NOW Care 11/25/24 00:18 Completed Insert IV NOW Care 11/25/24 00:19 Active NPO NOW Care 11/25/24 00:[address] head/brain wo con Stat Exams 11/25/24 00:45 Taken Acetaminophen Stat Lab 11/25/24 01:12 Completed Alcohol, Blood Medical Stat Lab 11/25/24 01:12 Completed Ammonia Stat Lab 11/25/24 01:12 Completed CBC Stat Lab 11/25/24 01:12 Completed Comprehensive Metabolic Panel Stat Lab 11/25/24 01:12 Completed Drug Screen,Urine Stat Lab 11/25/24 03:33 Completed Magnesium Stat Lab 11/25/24 01:12 Completed Troponin I Stat Lab 11/25/24 01:12 Completed Urinalysis, C/S if Indicated Stat Lab 11/25/24 03:33 Completed Diazepam Inj [Valium Inj] Med 11/25/24 00:15 Discontinued 10 mg IM X1 ONE DiphenhydrAMINE INJ [Benadryl Inj] Med 11/25/24 00:15 Discontinued 50 mg IM X1 ONE Sodium Chloride 0.9% 1000 ml [Ns] 1,000 ml Med 11/25/24 00:18 Discontinued IV 2,000 mls/hr Sodium Chloride 0.9% 1000 ml [Ns] 1,000 ml Med 11/25/24 04:32 Active IV 999 mls/hr Oxygen Delivery NOW RT 11/25/24 00:19 Active Vital Signs Vital signs: Vital Signs Pulse Rate 108 H 11/25/24 00:19 Medical Clearance MDM Narrative MDM Narrative:: Scribe Attestation: I, Chelalaura Bcaon, am scribing for and in the presence of Dr. Amaya. Provider Notation: Although this document has been carefully reviewed, there may still be some phonetic and other typographical errors. These errors are purely grammatical due to imperfections in the software program and should not be construed in any way to compromise the substance of the patient's medical care during this visit. Patient presenting with severe agitation after patient reportedly acting bizarre, making gun gestures , and was resistant to arrest subsequential tazed causing him to fall backwards striking occiput without associated LOC or alteration LOC witnessed by avp. Patient was escorted to ED for evaluation. Upon arrival, patient was acutely agitated with pressure tangential speech, confused and unable to provide succinct history. Please see PE findings. Laboratory markers, including CBC, demonstrates marginally elevated WBC of 11.4, patient with normal hemoglobin and platelet count, slight left shift with no associated bandemia. Serum chemistries demonstrate a slightly low Potassium of 3.1 UA with glucosuria. Tox profile is positive for Methamphetamine. Salicylates and Tylenol undetected. Patient placed on quality assurance monitor chassis, required rapid tranquilization in effort to minimize injury to both patient and staff. Patient was hydrated aggressively with normal saline and observed for extended period of time. Sensorium improved, now, although continues to have pressured speech, no hallucinations apparent. Considered stable for discharge into custody of [facility] as patient is medically cleared for both transport and incarceration. Final diagnosis includes drug-induced psychosis. Patient data External records reviewed:: [facility] previous records (Reviewed prior ED records from 03/25/24. Patient was seen for Acute and transient psychotic disorder.) Clinical information provided by:: law enforcement Social determinants that could affect healthcare access:: substance use (Methamphetamine, Benzodiazepine, Schizophrenia, BPD) Patient has the following chronic illnesses:: Schizophrenia, Bipolar Disorder, Recreational Drug Use, and Behavior Problems How is presenting disease/condition affected by chronic disease/condition?: exacerbated by Evaluation data The following diagnostics were reviewed and interpreted by me:: lab results and radiology exam(s) Lab and/or radiology exams considered but not ordered:: None Interpretation Summary: RADIOLOGY Head/Brain CT: Findings: There is no evidence of intracranial hemorrhage, mass effect or midline shift. There are mild periventricular white matter hypodensities, likely representing chronic small vessel ischemia. The calvarium is intact. The mastoid air cells and the visualized paranasal sinuses are clear. Old fracture/deformity of the nasal bones. Mild right parietal scalp swelling is seen. Impression: No evidence of intracranial hemorrhage, midline shift or calvarial fracture. Periventricular chronic small vessel ischemia. Mild right parietal scalp swelling. Medications / Prescriptions Medications or Prescriptions considered but not ordered:: None Medication administrations:: Medication Administration History Sodium Chloride (Ns) 1,000 mls @ 999 mls/hr IV .Q1H1M ONE Stop: 11/25/24 05:32 Last Infusion: 11/25/24 04:50 Dose: 0 mls/hr Documented By: Admin: 11/25/24 04:38 Dose: 999 mls/hr Documented By: CCT Discontinued Medications Diazepam (Diazepam Inj 5 Mg/Ml Vial 2 Ml) 10 mg IM X1 ONE Stop: 11/25/24 00:16 Last Admin: 11/25/24 00:34 Dose: 10 mg Documented By: CCT Diphenhydramine HCl (Diphenhydramine Inj 50 Mg/Ml Vial) 50 mg IM X1 ONE Stop: 11/25/24 00:16 Last Admin: 11/25/24 00:34 Dose: 50 mg Documented By: CCT Sodium Chloride (Ns) 1,000 mls @ 2,000 mls/hr IV .Q30M ONE Stop: 11/25/24 00:47 Last Infusion: 11/25/24 01:45 Dose: Infused Documented By: Admin: 11/25/24 01:13 Dose: 2,000 mls/hr Documented By: CCT See above if any Consultations Consultation(s) initiated? 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 after review of the tests above:: Methamphetamine induced psychosis Admission Indicated Admission indicated?: not indicated Explain why admission is indicated or not indicated:: Does not meet admission criteria Admission Request Was there a request for admission?: No Disposition Plan Disposition Plan: other (specify) (Signed out to PPD) Critical Care Time Critical Care Time Critical Care Time: Yes Total Critical Care Time (min.): 40 Attestation: The high probability of sudden, clinically significant deterioration in the patient?s condition required the highest level of my preparedness to intervene urgently. The services I provided to this patient were to treat and/or prevent clinically significant deterioration. Services included the following: chart data review, reviewing nursing notes and/or old charts, documentation time, decorator consultant collaboration regarding findings and treatment options, medication orders and management, direct patient care, vital sign assessments and ordering, interpreting and reviewing diagnostic studies and lab tests. Aggregate critical care time includes only time during which I was engaged in work directly related to the patient?s care, as described above, whether at bedside or elsewhere in the Emergency Department. It did not include time spent performing other reported procedures or the services of residents, students, nurses or physician assistants. 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 Additional Instructions: Increase fluids/nutrition, maintain adequate rest. Avoid substance abuse. Print Language: Kinyarwanda
[2024-11-25 01:39] LABS: Ammonia 45 uMol/L (11-32)
[2024-11-25 01:42] LABS: Acetaminophen < 2.0 mcg/mL (10.0-20.0); Alanine Aminotransferase 42 U/L (10-49); Albumin, Serum 4.3 gm/dL (3.5-5.0); Albumin/Globulin Ratio 1.8 (1.2-2.2); Alcohol, Blood Medical < 3.0 mg/dL (0-10.0); Alkaline Phosphatase 90 U/L (46-116); Anion Gap 15 (7-16); Aspartate Amino Transferase 63 U/L (0-34); BUN/Creatinine Ratio 15 Ratio (12-20); Bilirubin,Total 0.6 mg/dL (0.3-1.2); Blood Urea Nitrogen 16 mg/dL (9-23); Calcium 9.1 mg/dL (8.3-10.6); Calcium (Corrected) 9.1 mg/dL (8.5-10.1); Carbon Dioxide 21.7 mMol/L (20.0-31.0); Chloride 104 mMol/L (98-107); Creatinine (Component) 1.1 mg/dL (0.6-1.3); Estimated Creatinine Clearance 59.7 mL/min (>60); Globulin 2.4 gm/dL (2.3-3.5); Glucose 245 mg/dL (74-106); Magnesium 2.2 mg/dL (1.6-2.6); Osmolality,Calculated 290 (275-295); Potassium 3.1 mMol/L (3.4-5.1); Sodium 141 mMol/L (136-145); Total Protein 6.7 gm/dL (5.7-8.2); Troponin I < 0.020 ng/mL (0.0-0.045); eGFR > 60 See Note
--- NOTE | 2024-11-25 02:15 | PC.NURSE ---
Pt taken to CT via mercedes. Restraints removed at this time, pt cooperative.
[2024-11-25 02:47] VITALS: BP 173/97; PULSE 96; RESP 20; TEMP 36.8; O2SAT 95
--- NOTE | 2024-11-25 02:51 | PRELIM_ITS ---
CT scan of the head without intravenous contrast (axial sections with sagittal and coronal reformats): November 25, 2024 at 0215 hours Clinical History: Head trauma. No prior study is available for comparison. Findings: There is no evidence of intracranial hemorrhage, mass effect or midline shift. There are mild periventricular white matter hypodensities, likely representing chronic small vessel ischemia. The calvarium is intact. The mastoid air cells and the visualized paranasal sinuses are clear. Old fracture/deformity of the nasal bones. Mild right parietal scalp swelling is seen. Impression: No evidence of intracranial hemorrhage, midline shift or calvarial fracture. Periventricular chronic small vessel ischemia. Mild right parietal scalp swelling. Report Electronically Signed By: Hermes Phipps 11/25/2024 2:51:04 AM [EST]
[2024-11-25 03:20] VITALS: BP 160/87; PULSE 97; RESP 20; TEMP 36.8; O2SAT 97
[2024-11-25 03:37] LABS: Collection Type, Urine Clean Catch
[2024-11-25 03:44] LABS: Bilirubin,Urine Negative (Negative); Blood,Urine Trace (Negative); Clarity,Urine Clear (Clear/Hazy); Color,Urine Lt-Yellow (Lt Yel-Yel); Culture Indicated,Urine Not Indicated; Glucose, Urine 3+ (Negative); Hyaline Casts,Urine < 1 /hpf (0-1); Ketones,Urine Negative (Negative); Leukocyte Esterase,Urine Negative (Negative); Nitrite,Urine Negative (Negative); PH,Urine 6.0 (5.0-7.0); Protein,Urine Negative (Neg - Trace); RBC,Urine 2 /hpf (0-3); Specific Gravity,Urine 1.013 (1.001-1.035); Squamous Epithelial Cell,Urine < 1 /hpf (0-5); Urobilinogen,Urine Negative mg/dL (0.0-1.0); WBC,Urine 1 /hpf (0-5)
[2024-11-25 03:56] LABS: Amphetamine/Methamp Scrn,U Positive (Negative); Barbiturate Screen,Urine Negative (Negative); Benzodiazepines Screen,Urine Negative (Negative); Benzoylecgonine Screen, Ur Negative (Negative); Fentanyl Screen,Urine Negative (Negative); Opiate Screen,Urine Negative (Negative); THC Screen,Urine Negative (Negative)
[2024-11-25] MEDS: SODIUM CHLORIDE 0.9% 1000 ML 1,000 ML 999 ML IV (04:38)
--- NOTE | 2024-11-25 04:50 | PC.NURSE ---
Per Dr. Castañeda stop IV fluids and have pt ambulate. Pt awake/alert/oriented to self and place. Pt able to ambulate with steady gait. Per , will discharge pt.
[2024-11-25 04:55] VITALS: BP 139/86; PULSE 98; RESP 20; TEMP 36.9; O2SAT 98
== END 2024-11-25 04:55 ==
PROVIDERS: Emergency Provider Emergency Medicine
DX: F15.959 Other stimulant use, unspecified with stimulant-induced psychotic disorder, unspecified (principal); F20.9 Schizophrenia, unspecified; F31.9 Bipolar disorder, unspecified; I10 Essential (primary) hypertension; T42.4X5A Adverse effect of benzodiazepines, initial encounter
CPT/HCPCS: 36415; 70450; 80053; 80307; 80320; 80329; 81001; 82140; 83735; 84484; 85025; 96360; 96372; 99284; J1200; J3360; J7030; G0480

== ENCOUNTER 2025-01-01 17:57 | Emergency (ER) | payer MEDICAID, SELFPAY ==
[2025-01-01 18:06] VITALS: BP 189/122; PULSE 118; RESP 22; TEMP 37; O2SAT 100; BMI 23.3
--- NOTE | 2025-01-01 18:07 | EDNOTE_ITS ---
ED Medical Clearance RME/HPI General Chief complaint: Medical Clearance Stated complaint: MEDICAL CLEARANCE Time Seen by Provider: 01/01/25 18:03 Arrival date/time: 01/01/25 17:57 59-year-old male patient with significant history of drug-induced psychosis, was brought in by law enforcement for medical clearance. Patient was tased today after trying to resist arrest, and patient fell down to the ground. On my initial evaluation patient is talking nonsense, shouting, denying any complaint. Blood pressure was noted to be elevated. Patient is very aggressive. No obvious injury noted at this time. Patient is ambulatory. Related Information Home Medications ?Medication ?Instructions ?Recorded ?Confirmed Unobtainable 02/17/19 02/17/19 Allergies Allergy/AdvReac Type Severity Reaction Status Date / Time haloperidol Allergy swelling Verified 11/25/24 00:28 Review of Systems Review of Systems Narrative Review of Systems: Review of system reviewed and within normal limits except mentioned in HPI ED Exam Narrative Physical exam: VITAL SIGNS: Reviewed. GENERAL APPEARANCE: Alert and interactive, follows commands, no acute distress, HEAD AND FACE: Non-traumatic. ENT: PERRL, pink conjunctivitis, eyelid no trauma, Mucous membrane moist. NECK: Supple, nontender, no nuchal rigidity. CHEST: No tenderness, no crepitus, no paradoxical movement, no retractions. LUNGS: Clear, well ventilated, symmetric, no rales, no wheezing, no ronchi, no stridor, good breath sounds bilaterally. HEART: Regular rate, regular rhythm, no murmur, no gallops. ABDOMEN: Soft, positive bowel sounds, nondistended, no guarding, nontender, no rebound, no masses, RECTAL: Deferred. GENITAL: Deferred. NEUROLOGICAL: Gross motor function intact sensory function intact, Appropriate for age. MUSCULOSKELETAL: low back nontender, full range of motion. EXTREMITIES: Nontender, full range of motion. SKIN: Color pink, dry, no rash, no lacerations, no abrasions, no contusions. LYMPHATICS: Deferred. Course Quality Measures none Orders Category Date Time Status DiphenhydrAMINE [Benadryl] Med 01/01/25 18:06 Discontinued 50 mg PO X1 ONE NIFEdipine [Procardia] Med 01/01/25 18:03 Discontinued 20 mg PO X1 ONE Vital Signs Vital signs: Vital Signs Temperature 98.6 F 01/01/25 18:06 Pulse Rate 118 H 01/01/25 18:06 Respiratory Rate 22 H 01/01/25 18:06 Blood Pressure 189/122 H 01/01/25 18:06 Pulse Oximetry (%) 100 01/01/25 18:06 Oxygen Delivery Method Room Air 01/01/25 18:06 Medical Clearance MDM Narrative MDM Narrative:: 59-year-old male patient with significant history of drug-induced psychosis, was brought in by law enforcement for medical clearance. Patient was tased today after trying to resist arrest, and patient fell down to the ground. On my initial evaluation patient is talking nonsense, shouting, denying any complaint. Blood pressure was noted to be elevated. Patient is very aggressive. No obvious injury noted at this time. Patient is ambulatory. Patient is medical cleared after patient received Benadryl, and Procardia. Patient blood pressure was noted to be 164/85 heart rate of 119. Patient is ambulatory denies any complaints prior to discharge. Patient data External records reviewed:: None Clinical information provided by:: none Social determinants that could affect healthcare access:: mental health Patient has the following chronic illnesses:: Drug-induced psychosis How is presenting disease/condition affected by chronic disease/condition?: exacerbated by Evaluation data The following diagnostics were reviewed and interpreted by me:: other (specify) (None) Lab and/or radiology exams considered but not ordered:: None Interpretation Summary: None none Medications / Prescriptions Medications or Prescriptions considered but not ordered:: None Medication administrations:: Medication Administration History Discontinued Medications Diphenhydramine HCl (Diphenhydramine 25 Mg Capsule) 50 mg PO X1 ONE Stop: 01/01/25 18:07 Last Admin: 01/01/25 18:25 Dose: 50 mg Documented By: MARY Nifedipine (Nifedipine 10 Mg Capsule) 20 mg PO X1 ONE Stop: 01/01/25 18:04 Last Admin: 01/01/25 18:26 Dose: 20 mg Documented By: MARY Procardia, Benadryl Consultations Consultation(s) initiated? (list below): No Diagnosis Medical Clearance Differential Diagnosis: other (Medical clearance for incarceration, drug abuse psychosis) Most likely diagnosis given after review of the tests above:: Medical clearance for incarceration Admission Indicated Admission indicated?: not indicated Admission Request Was there a request for admission?: No Disposition Plan Disposition Plan: Discharge Discharge Attestation Discharge Attestation: Patient condition: Stable Discharge Plan Plan Patient Disposition: HOME (Self Care) Discharge Disposition comment: stable Prescriptions/Referrals Prescriptions/Med Rec: No Action Unobtainable Problem List Clinical Impression: Medical clearance for incarceration Patient/Caregiver Discharge Instructions Discharge Activity: activity as tolerated Education Materials: Reducing Your Health Risks ... Additional Instructions: Thank you for the opportunity for serving you today. You are stable for discharged . You are medically cleared for incarceration Print Language: Israeli Stand Alone Forms: [facility] Award Info., Patient Portal Info Letter
--- NOTE | 2025-01-01 18:15 | PC.NURSE ---
[employer] OFFICER CALLED THIS NURSE TO NOTIFIED THAT THE PT ROLLED OFF THE BED AND FELL ONTO HIS HEAD, HITTING HIS FOREHEAD. ON ASSESSMENT PT DENIED ANY NECK PAIN OR BACK PAIN, PT WAS GIVEN NON-SKIT SOCK, RASHEL IRIZARRY MADE AWARE, CODE BARBARA CALLED OVER HEAD
[2025-01-01 18:26] VITALS: BP 189/122; PULSE 116
[2025-01-01 18:49] VITALS: BP 164/85; PULSE 119; RESP 18; O2SAT 99
[2025-01-01 19:11] VITALS: BP 164/80; PULSE 113; RESP 16; O2SAT 95
== END 2025-01-01 19:12 | disposition home or self-care (01) ==
LOC: SERX 19:09
PROVIDERS: Emergency Provider Emergency Medicine
DX: Z02.89 Encounter for other administrative examinations (principal); R03.0 Elevated blood-pressure reading, without diagnosis of hypertension
CPT/HCPCS: 99282; A9270